=== PATIENT | male | born 1985 | race Hispanic/Latino ===

== ENCOUNTER 2021-03-03 23:21 | Emergency (ER) | payer SELFPAY ==
[~2021-03-03] VITALS: Ht 165.1 cm; Wt 79.4 kg
[2021-03-03] MEDS ORDERED: SODIUM CHLORIDE 0.9% 1000ML 1,000 ML IV STA (23:46)
[2021-03-04] MEDS ORDERED: IOPAMIDOL 370 MG/ML 200 ML INFUS..BTL INJ ONE (00:15)
[2021-03-04] MEDS ORDERED: SODIUM CHLORIDE 0.9% 50ML 50 ML ONE (00:15)
[2021-03-04] MEDS ORDERED: SODIUM CHLORIDE 0.9% 1000ML 1,000 ML ONE (00:51)
[2021-03-04] MEDS ORDERED: CIPRO500 MG PO (01:20)
[2021-03-04] MEDS ORDERED: FLAGYL500 MG PO (01:20)
[2021-03-04] MEDS ORDERED: ONDANSETRON ODT4 MG PO (01:20)
[2021-03-04] MEDS ORDERED: ACETAMINOPHEN-1 EAC4 PO (01:21)
== END 2021-03-04 01:45 | disposition home or self-care (01) ==
LOC: FSED 23:35
DX: R10.11 Right upper quadrant pain (principal); K52.9 Noninfective gastroenteritis and colitis, unspecified; R11.2 Nausea with vomiting, unspecified; Z98.0 Intestinal bypass and anastomosis status
CPT/HCPCS: 74177; 99284; J7030; Q9967